=== PATIENT | male | born 1950 | race Hispanic/Latino ===

== ENCOUNTER → 2017-06-08 | Outpatient (CLI) | payer OTHER ==
[~2017-06-08] MED LIST: BACL10TA PO; CHOL100053 PO; ESOM20CA31 PO; GABA-318 PO; HYDR-4068 PO; METH750T3 PO; METO5TAB2 PO; MIRT30TA6 PO; OMEG300C3 PO; PANT40TA25 PO; PERM60CR4 TP; SIME80TA12 PO; SUCR1TAB2 PO
== END | disposition home or self-care (01) ==
LOC: OIH 12:50
PROVIDERS: ATTEND Internal Medicine Cardiovascular Disease
DX: Z13.6 Encounter for screening for cardiovascular disorders (principal)
CPT/HCPCS: 75571

== ENCOUNTER → 2017-12-04 | Outpatient (CLI) | payer OTHER ==
[~2017-12-04] MED LIST changes: -ESOM20CA31 PO; -GABA-318 PO; +IOHEXOL-350 75 ML VIAL IV ONE; -SIME80TA12 PO
== END | disposition home or self-care (01) ==
LOC: RAH 08:05
PROVIDERS: ATTEND Internal Medicine Gastroenterology
DX: K44.9 Diaphragmatic hernia without obstruction or gangrene (principal); K42.9 Umbilical hernia without obstruction or gangrene
CPT/HCPCS: 74170; Q9967

== ENCOUNTER → 2019-07-09 | Outpatient (CLI) | payer OTHER ==
[~2019-07-09] MED LIST changes: -IOHEXOL-350 75 ML VIAL IV ONE
== END | disposition home or self-care (01) ==
LOC: RAH 08:47
PROVIDERS: ATTEND Internal Medicine Gastroenterology
DX: R10.10 Upper abdominal pain, unspecified (principal)
CPT/HCPCS: 76700

== ENCOUNTER 2024-08-23 06:33 | Day surgery (SDC) | payer MEDICARE ==
[2024-08-19 11:17] VITALS: BP 163/88; PULSE 61; RESP 17; TEMP 98.8
[2024-08-19 11:31] LABS: BASOPHILS # (AUTO) 0.03 K/uL (0.00-0.20); BASOPHILS % (AUTO) 0.7 % (0.0-5.0); EOSINOPHILS % (AUTO) 4.6 % (0.0-8.0); HEMATOCRIT 40.2 % (42-54); IMMATURE GRANULOCYTE ABSOLUTE 0.02 K/uL (0-1); LYMPHOCYTES # (AUTO) 1.4 K/uL (1.0-4.8); LYMPHOCYTES % (AUTO) 32.3 % (21.0-51.0); MEAN CORPUSCULAR HEMOGLOBIN 28.4 pg (27.0-33.0); MEAN CORPUSCULAR HGB CONC 31.8 g/dL (32.0-36.0); MEAN CORPUSCULAR VOLUME 89.3 fL (79-99); MONOCYTES # (AUTO) 0.5 K/uL (0.1-1.0); MONOCYTES % (AUTO) 11.1 % (3.0-13.0); NEUTROPHILS # (AUTO) 2.2 K/uL (1.8-7.7); NEUTROPHILS % (AUTO) 50.8 % (40.0-77.0); PLATELET COUNT (AUTO) 215 K/uL (130-400); RED CELL DISTRIBUTION WIDTH 14.4 % (11.0-15.5); WHITE BLOOD COUNT (AUTO) 4.3 K/uL (4.8-10.8)
[2024-08-19 11:43] LABS: APPEARANCE,URINE CLEAR (CLEAR); BILIRUBIN,URINE NEGATIVE (NEGATIVE); COLOR,URINE COLORLESS (YELLOW); GLUCOSE, URINE (UA) NEGATIVE (NEGATIVE); KETONES,URINE NEGATIVE (NEGATIVE); LEUKOCYTE ESTERASE ,URINE NEGATIVE Leu/uL (NEGATIVE); NITRATE,URINE NEGATIVE (NEGATIVE); OCCULT BLOOD,URINE NEGATIVE (NEGATIVE); PH,URINE 6.5 (5.0-8.0); PROTEIN,URINE NEGATIVE (NEGATIVE); UROBILINOGEN,URINE 0.2 mg/dL (0.2-1.0)
[2024-08-19 11:46] LABS: CREATININE 0.8 mg/dL (0.5-1.3); POTASSIUM 4.2 mmol/L (3.5-5.1)
[2024-08-19 11:51] LABS: ADD UA MICROSCOPIC NO
[2024-08-19 11:52] LABS: INR 0.98 (0.85-1.15); PROTHROMBIN TIME 10.4 SEC (9.6-11.6)
--- NOTE | 2024-08-19 12:03 | EKG ---
[facility] Test Date: 2024-08-19 Test Time: 11:13:11 Pat Name: GABI CAICEDO Department: [facility] Room: Gender: M [place] [employer]eg[employer]ard: [id number] : 1950 Requested By: ROBERTO VARELA Order Number: [id number] Reading MD: Tulio Maldonado Measurements Intervals [place] Rate: 57 P: 52 [place]: 166 QRS: 37 QRSD: 74 T: 62 QT: 428 QTc: 416 Interpretive Statements Sinus bradycardia with marked sinus arrhythmia Minimal voltage criteria for LVH, may be normal variant No previous ECG available for comparison Electronically Signed On 08-21-2024 14:00:43 CDT by Tulio Maldonado Please click the below link to view image of tracing.
[2024-08-23] VITALS (13 sets, daily range): BP systolic 130–160; BP diastolic 73–90; PULSE 56–74; RESP 14–18; TEMP 97.3–98.1
[~2024-08-23] VITALS: Ht 180.3 cm; Wt 71.8 kg
[~2024-08-23 06:33] MED LIST changes: +ASPI-1005 PO; -BACL10TA PO; +CHOL-34 PO; -CHOL100053 PO; +ERGO500093 PO; +FAMO40TA7 PO; -HYDR-4068 PO; -METH750T3 PO; +METO-408 PO; -METO5TAB2 PO; -MIRT30TA6 PO; +OMEG100033 PO; -OMEG300C3 PO; -PANT40TA25 PO; -PERM60CR4 TP; +TRAMADOL HCL PO; +TRAMADOL PO
[2024-08-23] MEDS: ceFAZolin SODIUM 2 GM VIAL ONE (07:40)
[2024-08-23] MEDS: LACTATED RINGERS 1000ML 1,000 ML IV ONE (07:40)
[2024-08-23] MEDS ORDERED: MIDAZOLAM HCL 1 MG/ML 2ML VIAL ONE (09:18)
[2024-08-23] MEDS ORDERED: proPOFol 10 MG/ML 20ML VIAL IV ONE ×2 (09:18→09:56)
[2024-08-23] MEDS ORDERED: ondanSETRON 4MG INJ ONE (09:19)
[2024-08-23] MEDS ORDERED: rocuRONium bROMide 10MG/1ML 5ML VL ONE (09:19)
[2024-08-23] MEDS ORDERED: FENTanyl CITRate PF 50 MCG/1 ML 2ML VIAL ONE ×2 (09:19→10:45)
[2024-08-23] MEDS ORDERED: BUPIvacaine/PF 0.25% 30ML VIAL IJ ONE (09:37)
[2024-08-23] MEDS ORDERED: ePHEDrine SULFate 50 MG/ML AMPULE ONE (09:42)
[2024-08-23] MEDS: ceFAZolin SODIUM 2 GM VIAL IVPB ONE (09:50)
[2024-08-23] MEDS ORDERED: GLYCOPYRROLATE 0.2 MG/ML 5 ML VIAL ONE (10:23)
[2024-08-23] MEDS ORDERED: NEOSTIGMINE METHYLSULFATE 1MG/ML IV ONE (10:23)
--- NOTE | 2024-08-23 16:43 | OP ---
Operative Note: DATE OF PROCEDURE: 08/23/24 SURGEON: ROBERTO VARELA MD [facility] HELPER: [] ANESTHESIA: General ANESTHESIOLOGIST/FLIGHT TEST MECHANIC: Ayaz WILLETT PREOPERATIVE DIAGNOSIS: Lipoma posterior neck, lipoma left upper back and lipoma right upper back POSTOPERATIVE DIAGNOSIS: Lipoma posterior neck, lipoma right upper back and epidermal cyst of left upper back SYNOPSIS: [] PROCEDURE: Excision of posterior neck lipoma 6 x 5 cm in size, excision of right upper back lipoma 6 x 4-1/2 cm in size, excision of left upper back 2.2 x 1 cm epidermal cyst ESTIMATED BLOOD LOSS: 5 cc INDICATIONS: Symptomatic masses of the back and neck Specimens removed: Lipoma posterior neck, lipoma right upper back and epidermal cyst of left upper back DESCRIPTION OF PROCEDURE: Patient was brought to the operating room placed on the operating table in a supine position. Once general endotracheal anesthesia was achieved patient was placed in prone positioning on neck and back are prepped and draped in sterile fashion. I created a transverse incision over top of the right upper back mass and dissected through the skin and the subc utaneous tissue to excise the lipoma with its capsule off of the fascia of the muscle. And once excised measured it at 6 x 4.5 cm in size. We obtained hemostasis and packed the area. I then turned my attention to the posterior neck mass. Created a transverse incision over top of the mass and dissected through skin and subcutaneous tissue to expose the fascia of the mass dissected around it with Bovie cautery and excised it completely. Measured it at 6 x 5 cm in size. We then proceeded to obtain hemostasis and irrigated the area. I then created a transverse incision over the top of the left upper back over top of the mass and dissected with a sharp dissection around the capsule of the epidermal cyst and excised it completely measuring at 2.2 cm x 1 cm. Obtain hemostasis and irrigated the area. We then proceeded to close all three incisions with running 3-0 Vicryl suture. And then proceeded to close the skin with 4-0 Monocryl running subcuticular fashion and Dermabond is applied over top. Patient tolerated the procedure well pressure dressings were applied over top of the larger areas. All counts correct x2 at the end of the procedure ROBERTO VARELA MD Aug 23, 2024 16:43
== END 2024-08-23 12:15 | disposition home or self-care (01) ==
LOC: DAH 06:33
PROVIDERS: ATTEND Student in an Organized Health Care Education/Training Program
DX: R22.1 Localized swelling, mass and lump, neck (principal); D17.1 Benign lipomatous neoplasm of skin and subcutaneous tissue of trunk; L72.0 Epidermal cyst; Z79.899 Other long term (current) drug therapy; Z79.82 Long term (current) use of aspirin; Z98.890 Other specified postprocedural states; Z86.0100 Personal history of colon polyps, unspecified; E66.9 Obesity, unspecified; Z68.30 Body mass index [BMI] 30.0-30.9, adult; Z79.01 Long term (current) use of anticoagulants
CPT/HCPCS: 80048; 85025; 85610; 85730; 81003; 36415; 93005; 21554; 21931; 11403; 88304; A4223 ×2; A4600; A6260; A4663; J7120; J3010 ×2; J0665 ×2; J3490 ×3; J2250; J2704 ×2; J2405; J2710; J0690 ×2; A4930; A4215; A4222; A4221; A4216; A4450